=== PATIENT | female | born 1985 | race Caucasian/White ===

== ENCOUNTER 2025-05-04 15:17 | Outpatient (AMB) | payer OTHER, SELFPAY ==
--- NOTE | 2025-05-04 15:23 | MHC.PC.OV ---
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 Waste/Materials Exchange Specialist Required: No Accompanied by: Self / Same As Patient Allergies No Known Allergies Allergy (Verified 05/04/25 15:27) Medication List - Last Reconciled 05/04/25 by Bernardo Roy MD No Known Home Meds Tobacco use date assessed: 05/04/25 Dental Screening Dental Screen Date: 05/04/25 Did you have a dental visit in the last 12 months?: No Did you have a dental problem in the last 6 months where you did not have access to dental care?: No Was dental information given to patient?: Patient has dentist HPI HPI Comments History of Present Illness Details History of Present Illness The patient is a 40-year-old female presenting for evaluation of suspected sleep apnea and concerns regarding weight gain and potential thyroid issues. Suspected Obstructive Sleep Apnea: The patient is concerned about sleep apnea after others have observed her stopping breathing and wheezing for air while asleep. She reports waking up feeling tired and not refreshed, experiencing morning headaches, and feeling that she does not get deep, restorative (REM) sleep. She notes waking every couple of hours and has restless sleep. A specialized pillow for snoring has provided only one night of decent sleep. Morbid Obesity: The patient's mother suspects she has thyroid issues due to being overweight and unable to lose weight. The patient states she is at the highest weight she has ever been in her life, having weighed around 140-150 pounds before her 6-7 years ago. 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 Her BMI is 47.5, which is classified as morbid obesity. Alcohol Use Disorder: The patient reports drinking wine every day. She acknowledges a history of alcohol abuse and has had three periods of sobriety in the past, lasting nine months twice and ten months once. She describes herself as a functional user who works daily, but uses alcohol to self-medicate and numb her feelings of anxiety and depression. She previously attended an outpatient program but left after three weeks as she felt it was not a good fit. Abnormal Mammogram: The patient had her first mammogram on Thursday and was called back for additional images and an ultrasound of her right breast due to findings of dense breast tissue. Health Maintenance: The patient has not had a Pap smear since her six to seven years ago. She has no personal history of hypertension or diabetes. Surgical History: - Emergency section approximately six years ago Medications: - The patient denies taking any prescription medications. Social History: - Family Status: The patient is a mother to a 6-year-old daughter. 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 - Substance Use: The patient uses a Juul vape pen and reports drinking wine daily. - Housing: She lives in a [place] [facility] area ([facility] ) which is a 45-minute drive from the clinic. - Legal History: Reports a past DUI which resulted in being unable to drive for approximately four years. Family History: - Paternal grandmother: of two consecutive heart attacks. - Paternal grandfather: of colon cancer at age 41. - Mother: History of breast cancer. - Paternal aunt: History of breast cancer. Diagnostic Results: - Mammogram: Recent mammogram showed dense breast tissue, requiring follow-up imaging and an ultrasound of the right breast. Past Medical History - 1, Para 1, with one six years ago resulting in an emergency . - History of alcohol abuse, with three prior periods of sobriety. - Attended an outpatient alcohol treatment program in the past but did not complete it. - History of depression. - Denies history of hypertension or diabetes. Health Maintenance - Patient advised on the need to follow up on her recent abnormal mammogram findings. - The patient is due for a Pap smear, with her last one having been six years ago. - Comprehensive labs will screen for common comorbidities related to obesity, such as diabetes and hyperlipidemia. - A follow-up visit is scheduled in two weeks to review all lab results. [facility] Medical History (Updated 05/04/25 @ 16:20 by Bernardo Roy MD) Morbid obesity due to excess calories Anxiety and depression Alcohol abuse Sleep apnea delivery delivered Family History (Updated 05/04/25 @ 15:31 by Narendra Espinosa MA) Father Substance abuse Paternal Grandfather Substance abuse Mother Breast cancer Paternal Aunt Breast cancer Maternal Grandfather Colon cancer Maternal Grandmother Heart attack Other FH: mental illness Social History (Updated 05/04/25 @ 15:32 by Narendra Espinosa MA) Housing: House Alcohol intake: current e-Cigarette/Vaping Use: Currently Using service: No Current occupational status: employed 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 1. Little interest or pleasure in doing things: not at all 2. Feeling down, depressed, or hopeless: not at all 3. Trouble falling or staying asleep, or sleeping too much: several days 4. Feeling tired or having little energy: several days 5. Poor appetite or overeating: not at all 6. Feeling bad about yourself - or that you are a failure or have let yourself or your family down: not at all 7. Trouble concentrating on things, such as reading the newspaper or watching television: not at all 8. Moving or speaking so slowly that other people could have noticed. Or the opposite - being so fidgety or restless that you have been moving around a lot more than usual: not at all 9. Thoughts that you would be better off or of hurting yourself in some way: not at all Total score: 2 Depression Screening Interpretation: Negative Depression Screening Done: Yes 41453 - PHQ-9 Billing: Yes Source: Developed by Drs. Andrew Henry, Evi Bryant, Herman Odell and colleagues, with an educational betty from [employer]. Thrive Questionnaire Date Thrive assessed: 05/04/25 I am a: Patient What is your living situation today?: I have a steady place to live Within the past 12 months, did the food you bought not last and you didn't have the money to get more?: Never true Within the past 12 months, did you worry whether your food would run out before you got money to buy more?: Never true Do you have trouble paying for medicines?: No Do you have trouble getting transportation to medical appointments?: No Do you have trouble paying your heating and electricity bill?: No Do you have trouble taking care of your child, family member or friend?: No Are you currently unemployed and looking for a job?: No Are you interested in more education?: No Please select the resources that you would like help with: None Currently or been in a relationship where the following occur: No concerns reported THRIVE Score: 0 AUDIT C Alcohol Use Questionnaire (AUDIT-C) 1. How often do you have a drink containing alcohol?: 4 or more times a week 2. How many drinks containing alcohol do you have on a typical day when you are drinking?: 7 to 9 3. How often do you have six or more drinks on one occasion?: Daily or almost daily Total Score: 11 EMILIANO-7 AMB Questionnaire EMILIANO-7 Date EMILIANO - 7 assessed: 05/04/25 Feeling nervous, anxious, or on edge: 0 = Not at all Not being able to stop or control worryin = Not at all Worrying too much about different things: 0 = Not at all Trouble relaxin = Not at all Being so restless that it is hard to sit still: 0 = Not at all Becoming easily annoyed or irritable: 0 = Not at all Feeling afraid as if something awful might happen: 0 = Not at all Total EMILIANO-7 score (0-4 normal; 5-9 mild; 10-14 moderate; 15-21 severe): 0 Source: Developed by Drs. Andrew Henry, Evi Bryant, Hreman Odell and colleagues, with an educational betty from [employer]. EMILIANO-7 Assessment Billing EMILIANO-7 Assessment Tool: EMILIANO-7 Assessment 86854 Review of Systems Narrative Review of Systems - General: Reports fatigue and feeling unrefreshed upon waking. - Neurological: Reports waking up with headaches. - Psychiatric: Reports symptoms consistent with depression and anxiety. - Respiratory: Reports episodes of apnea and wheezing during sleep as observed by others. - Sleep: Reports restless sleep, not achieving deep sleep, and waking every couple of hours. - : Reports regular menses. - GI: Denies constipation. - Integumentary: Denies lower extremity swelling. 10-point ROS reviewed and negative except as noted in HPI Physical exam (Primary Care) Vital Signs: Last Vital Signs Temp 97.8 F 05/04/25 15:32 Pulse 85 05/04/25 15:32 Resp 18 05/04/25 15:32 BP 136/84 05/04/25 15:32 Pulse Ox 97 05/04/25 15:32 Oxygen Delivery Method Room Air 05/04/25 15:32 BMI result Body Mass Index 47.5 Tobacco/Smoking Status: Tobacco use Status Tobacco use date assessed 05/04/25 05/04/25 15:35 Patient Tobacco Use Status 05/04/25 15:35 e-Cigarette/Vaping Use Currently Using 05/04/25 15:35 PHQ-9: PHQ-9 Score PHQ-9: Total score 2 05/04/25 15:35 Depression Screening Interpretation: Negative Thrive Assessment: Date of Thrive Assessment Date Thrive assessed 05/04/25 05/04/25 15:35 Currently or been in a relationship where the following occur: No concerns reported Narrative Physical Exam General: Well-appearing, in no acute distress. Vital signs: Blood pressure and pulse are good. BMI is 47.5. HEENT: Normocephalic, atraumatic. PERRLA, EOMI. Conjunctiva clear, sclera anicteric. Oropharynx clear, mucous membranes moist. TMs intact bilaterally. Neck: Supple, no lymphadenopathy, no thyromegaly, no JVD or carotid bruits. Cardiovascular: RRR, normal S1/S2, no murmurs, rubs, or gallops. Peripheral pulses 2+ and symmetric. No edema. Respiratory: Lungs clear to auscultation bilaterally, no wheezes, rales, or rhonchi. Normal effort. Abdomen: Soft, non-tender, non-distended. Normoactive bowel sounds. No hepatosplenomegaly, no masses. MSK: Full range of motion, no joint swelling or deformity. Normal gait. Skin: Warm, dry, intact. No rashes, lesions, or pallor. Neuro: Alert and oriented x3. Cranial nerves II-XII intact. Strength 5/5 throughout. Sensation intact. Reflexes 2+ symmetric. Normal coordination and gait. Psych: Appropriate mood and affect. Normal judgment and insight. Coding Level of Care Code New Pt Level 4 (01895) Diagnoses Morning headache R51.9 Additional Codes EMILIANO-7 Assessment Billing - EMILIANO-7 Assessment Tool: EMILIANO-7 Assessment 04400 ([id number]) PHQ-9 - 86821 - PHQ-9 Billing: Yes ([id number]) Assessment & Plan Assessment & Plan (1) Morning headache: Code(s): R51.9 - Headache, unspecified Plan Consent The patient provided verbal consent to record the encounter. Patient was informed and verbally consented to the use of an ambient scribe for clinic note documentation during this visit. Plan 1. Suspected Obstructive Sleep Apnea - A referral will be placed for a home sleep study to evaluate for obstructive sleep apnea. - If the study diagnoses moderate to severe sleep apnea, a referral to sleep medicine or pulmonology will be made for CPAP titration. 2. Morbid Obesity - A comprehensive lab panel will be ordered, including a complete blood count, comprehensive metabolic panel, hemoglobin A1c, lipid panel, magnesium, TSH, vitamin B12, folate, and vitamin D. - A referral will be placed to the medical weight loss clinic, with a discussion of using telehealth to overcome distance barriers. - A referral will be placed for a supervisor fish processing. - The potential use of Zepbound was discussed, which may be covered by insurance if she is diagnosed with moderate to severe obstructive sleep apnea. 3. Alcohol Use Disorder - A referral will be placed to an addiction clinic to address her daily alcohol use. - A referral will be placed to a community nurse navigator to assist with finding resources. - The patient is amenable to telehealth options for these services due to the distance from her home. 4. Depression / Anxiety - A referral will be placed to Behavioral Health for therapy to address her anxiety and depression, for which she reports self-medicating with alcohol. Discussion Notes I discussed with the patient her primary concerns of sleep apnea and weight management. I explained the plan to order a comprehensive lab panel to get a complete picture of her overall health, including thyroid function, blood counts, metabolic function, cholesterol, and nutritional markers. We discussed ordering a home sleep study to investigate her symptoms of non-restorative sleep, morning headaches, and witnessed apneas. I explained that a diagnosis of [id number]-[id number] sleep apnea opens up treatment options, including FDA approval for GLP-1 agonist therapy such as Zepbound for weight loss. I detailed the difference between medications like Ozempic/Wegovy and Mounjaro/Zepbound, clarifying they are the same drugs used for different indications (diabetes vs. weight loss). I acknowledged her weight struggles and reviewed her BMI of 47.5, explaining that it is a risk factor for cardiovascular disease. Given the complexity of her situation, including her history of alcohol use, depression, and anxiety, I proposed a comprehensive, multi-specialty approach. This plan includes referrals to a medical weight loss clinic, an addiction clinic, behavioral health for therapy, a supervisor fish processing, and a community nurse navigator. We discussed leveraging telehealth to mitigate [place] The patient was receptive to the plan and expressed her motivation to become healthy for herself and her family. We will follow up in two weeks to review the results of her lab work and the status of her referrals. Patient Instructions - Please go to the lab to have your blood drawn for the ordered tests. - You can wait to provide a urine sample until after your current menstrual period is over. - Expect a call from a amBX to schedule a home sleep study. - When you do the sleep study, continue to use your regular pillow and sleep routine. - You will receive calls to set up appointments with several specialists, including the weight loss clinic, an addiction clinic, a therapist, and a supervisor fish processing. - Ask about telehealth (video or phone) appointments to make these visits more convenient since you live far away. - It is important to follow up with the breast center regarding your recent mammogram results. - Please return to the clinic in two weeks to discuss your lab results. Medical Decision Making The patient is a 40-year-old female with a complex presentation of morbid obesity (BMI 47.5), suspected obstructive sleep apnea, alcohol use disorder, and underlying depression/anxiety. Her symptoms of witnessed apnea, non-restorative sleep, and morning headaches are highly suggestive of FAREED, necessitating a home sleep study for definitive diagnosis. A diagnosis of [id number]-mbphpa FAREED would provide an indication for GLP-1 agonist therapy (Zepbound), which would be a melton tool for managing her morbid obesity. The patient's weight gain is multifactorial, linked to psychosocial stressors, depression, and daily alcohol use. Addressing her weight requires a comprehensive approach beyond simple lifestyle advice. Therefore, referrals to a medical weight loss clinic, supervisor fish processing, behavioral health for therapy, and an addiction clinic are clinically indicated to address these interconnected issues simultaneously. Initial workup includes a comprehensive lab panel to screen for metabolic comorbidities such as hypothyroidism, diabetes, and hyperlipidemia, and to assess her overall health status before initiating potential new therapies. Her care will be coordinated with multiple specialties, with telehealth proposed to overcome the barrier of her remote residence. Urgent health maintenance items, including follow-up on her abnormal mammogram and overdue Pap smear, were also addressed. Total time spent caring for the patient today was 30 minutes. This includes time spent before the visit reviewing the chart, time spent documenting, and time spent reviewing laboratory results, diagnostic imaging, medications, performing a medically necessary evaluation, counseling on diagnoses, care coordination. Orders: Orders Complete Blood Count Auto Diff Today Z13.9 - Encounter for screening, unspecified UA CC w/rflx Micro + Cult Today Z13.9 - Encounter for screening, unspecified Vitamin B12 and Folate Today Z13.9 - Encounter for screening, unspecified Vitamin D 1,25 dihydroxy Today Z13.9 - Encounter for screening, unspecified RT home sleep study Today G47.30 - Sleep apnea, unspecified, R06.83 - Snoring, R51.9 - Headache, unspecified Comprehensive Met. Panel Today Z13.9 - Encounter for screening, unspecified Hemoglobin A1c Today Z13.9 - Encounter for screening, unspecified Hepatitis B Surface Antibody Today Z13.9 - Encounter for screening, unspecified Hepatitis B Surface Antigen Today Z13.9 - Encounter for screening, unspecified Hepatitis C Antibody Today Z13.9 - Encounter for screening, unspecified HIV Ab/Ag Today Z13.9 - Encounter for screening, unspecified Lipid Panel Today Z13.9 - Encounter for screening, unspecified Magnesium Today Z13.9 - Encounter for screening, unspecified TSH reflex Free T4 Today Z13.9 - Encounter for screening, unspecified Referrals Nurse Navigator Referral F10.10 - Alcohol abuse, uncomplicated Behavioral Health Referral F10.10 - Alcohol abuse, uncomplicated, F32.A - Depression, unspecified, F41.9 - Anxiety disorder, unspecified Addiction Medicine Referral F10.10 - Alcohol abuse, uncomplicated Nutrition/Dietitian Referral E66.01 - Morbid (severe) obesity due to excess calories
[2025-05-04 15:32] VITALS: BP 136/84; PULSE 85; RESP 18; TEMP 36.6; O2SAT 97; BMI 47.5
== END 2025-05-04 15:58 | disposition home or self-care (01) ==
LOC: HO.HMCFMS 15:18
PROVIDERS: PCP Student in an Organized Health Care Education/Training Program; Visit Provider Student in an Organized Health Care Education/Training Program
DX: R51.9 Headache, unspecified (principal)

== ENCOUNTER 2025-05-04 15:17 | Outpatient (REF) | payer OTHER, SELFPAY ==
[2025-05-04 17:45] LABS: NRBC Abs Auto 0.000 X10*3/uL (0.0-0.012); NRBC Pct Auto 0.0 /100WBC (0.0-0.2); SCAN SMEAR FLAG 1
[2025-05-04 17:47] LABS: Hematocrit 46.4 % (37.0-47.0); Hemoglobin 14.9 g/dl (12.0-16.0); Imm Gran Abs Auto 0.08 X10*3/uL (0.00-0.03); Imm Gran Pct Auto 0.7 % (0.0-0.4); Lymphocytes Absolute Auto 2.5 X10*3/uL (1.2-4.9); MANUAL DIFF FLAG SCAN; Mean Corpuscular HGB Conc 32.1 g/dl (31.0-35.0); Mean Corpuscular Hemoglobin 30.4 pg (27.0-33.0); Mean Corpuscular Volume 94.7 fL (80.0-98.0); PLT CLUMP 1; Red Blood Count 4.90 X10*6/uL (4.20-5.50)
[2025-05-04 17:48] LABS: PLT ABN DIST 1
[2025-05-04 17:51] LABS: Appearance Urine Turbid; Glucose Urine UA Negative (Negative); PH 6.0 (5.0-9.0); Specific Gravity - Urine 1.025 (1.005-1.025); UMIC TRIGGER UACC YES
[2025-05-04 18:04] LABS: White Blood Count 11.8 X10*3/uL (4.8-10.8)
[2025-05-04 18:15] LABS: Alanine Aminotransferase 45 U/L (0-31); Albumin Level 4.7 g/dL (3.5-5.0); Alkaline Phosphatase 87 U/L (39-117); Anion Gap 16 (12-20); Aspartate Amino Transferase 41 U/L (5-31); Blood Urea Nitrogen 15 mg/dL (9-16); Calcium 9.8 mg/dL (8.4-10.2); Carbon Dioxide 24 mmol/L (22-29); Chloride 102 mmol/L (96-108); Cholesterol 232 mg/dL (<200); Estimated Glomerular Filt Rate > 60; HDL Cholesterol 57 mg/dL (>40); Magnesium 2.3 mg/dL (1.6-2.6); Potassium 4.5 mmol/L (3.3-5.1); Sodium 137 mmol/L (135-145); Total Protein 7.6 g/dL (6.5-8.0); Triglycerides 175 mg/dL (<150)
[2025-05-04 18:41] LABS: Folate 5.7 ng/mL (> or = 4.0); Vitamin B12 408 pg/mL (200-900)
[2025-05-05 07:57] LABS: HBS Num1 > 1000.00 mIU/mL (0-7.99); HBsAGNum1 0.37 S/CO (0.00-0.99); HIV Num 1 0.06 S/CO (0.00-0.99); Hepatitis B Surface Antigen Negative (Negative); ~HepC Num1 0.06 S/CO (0.00-0.79); ~Hepatitis B Surface Antibody REACTIVE (Nonreactive); ~Hepatitis C Antibody Nonreactive (Nonreactive)
[2025-05-07 19:14] LABS: VITAMIN D (1,25 OH) D3 73 pg/mL; Vit D (1,25-Dihydroxy) Total 73 pg/mL (18-72); Vitamin D (1,25 OH) D2 <8 pg/mL
== END 2025-05-04 15:18 | disposition home or self-care (01) ==
LOC: HO.HKASLDS 15:17
PROVIDERS: PCP Student in an Organized Health Care Education/Training Program; Visit Provider Student in an Organized Health Care Education/Training Program
DX: E66.01 Morbid (severe) obesity due to excess calories (principal); G47.30 Sleep apnea, unspecified; R06.83 Snoring; F10.20 Alcohol dependence, uncomplicated; F32.A Depression, unspecified; F41.9 Anxiety disorder, unspecified; R51.9 Headache, unspecified; Z68.42 Body mass index [BMI] 45.0-49.9, adult
CPT/HCPCS: 36415; 80053; 80061; 81001; 82607; 82652; 82746; 83036; 83735; 84443; 85025; 86706; 86803; 87340; 87389; 96127; 99202

== ENCOUNTER 2025-05-18 14:59 | Outpatient (AMB) | payer OTHER, SELFPAY ==
[2025-05-18 15:04] VITALS: BP 125/65; PULSE 95; TEMP 36.6; O2SAT 96; BMI 46.9
--- NOTE | 2025-05-18 15:04 | MHC.PC.OV ---
Vital Signs 05/18/25 15:04 Height 4 ft 11.75 in Weight 238 lb BMI 46.9 BP 125/65 Blood Pressure Location Lt brachial Position Sitting Pulse 95 Pulse Source Pulse Oximeter Temp 97.8 F Temp Source Oral Pulse Oximetry (%) 96 Oxygen Delivery Method Room Air Intake Visit Reasons: 2 wk - lab review Glass Blower Helper Required: No Accompanied by: Self / Same As Patient Allergies No Known Allergies Allergy (Verified 05/18/25 15:04) Tobacco use date assessed: 05/18/25 Dental Screening Dental Screen Date: 05/18/25 Did you have a dental visit in the last 12 months?: No Did you have a dental problem in the last 6 months where you did not have access to dental care?: No Was dental information given to patient?: Patient has dentist HPI HPI Comments History of Present Illness Details History of Present Illness The patient is a 40-year-old individual presenting for review of laboratory results and follow-up on referrals. Hyperlipidemia: Recent lab work showed a total cholesterol of 232 mg/dL, triglycerides of 175 mg/dL, and LDL cholesterol of 140 mg/dL. The patient's HDL was within normal limits at 57 mg/dL. Elevated liver transaminases: The patient's liver function tests were noted to be slightly elevated, with one enzyme at 41 and another at 45, both with a cutoff of 31. The patient had not previously been told about elevated liver enzymes. These elevations are considered in the context of being overweight and alcohol consumption. Suspected Obstructive Sleep Apnea: A referral was previously placed for a home sleep study to evaluate for obstructive sleep apnea. The patient is awaiting a call from the sleep study company to arrange for equipment pickup. Overweight: The patient's status as overweight is noted as a contributing factor to the elevated liver enzymes. Referrals to a insulation and flooring assembler and medical weight management program have been placed. Social History: - The patient reports alcohol use. - The patient is overweight and has received referrals for a insulation and flooring assembler and medical weight management. - The patient lives 45 minutes away and prefers to use imaging services in [place]. Diagnostic Results: - CBC: White blood cells are slightly high but not concerning; red blood cells, hemoglobin, hematocrit, and platelets are normal. - CMP: Sodium, potassium, renal function, glucose, calcium, and magnesium are within normal limits. - Hemoglobin A1c: Within normal limits. - Liver Function Tests: Slightly elevated, with one enzyme at 41 and another at 45 (reference range cutoff is 31). - Lipid Panel: Triglycerides 175 mg/dL (ref <150), total cholesterol 232 mg/dL (ref <200), LDL 140 mg/dL (ref <100), and HDL 57 mg/dL (ref >40). - Vitamins: Vitamin B12, vitamin D, and folate levels are good. - Thyroid function tests: Good. - Urinalysis: Positive for moderate blood, attributed to menses. - Infectious Disease Screen: Negative for Hepatitis B, Hepatitis C, and HIV. Past Medical History - Pending referrals for addiction medicine and behavioral health have been placed. Health Maintenance - The patient will follow up on pending referrals with addiction medicine, behavioral health, a insulation and flooring assembler, and medical weight management. - The patient will complete the previously referred mammogram. [facility] Medical History (Updated 05/19/25 @ 07:50 by Bernardo Roy MD) Hyperlipidemia Elevated liver enzymes Abnormal mammogram Morbid obesity due to excess calories Anxiety and depression Alcohol abuse Sleep apnea delivery delivered Family History Father Substance abuse Paternal Grandfather Substance abuse Mother Breast cancer Paternal Aunt Breast cancer Maternal Grandfather Colon cancer Maternal Grandmother Heart attack Other FH: mental illness Social History Housing: House Alcohol intake: current Patient Tobacco Use Status: Never used Tobacco e-Cigarette/Vaping Use: Currently Using service: No Current occupational status: employed 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 1. Little interest or pleasure in doing things: not at all 2. Feeling down, depressed, or hopeless: not at all 3. Trouble falling or staying asleep, or sleeping too much: several days 4. Feeling tired or having little energy: several days 5. Poor appetite or overeating: not at all 6. Feeling bad about yourself - or that you are a failure or have let yourself or your family down: not at all 7. Trouble concentrating on things, such as reading the newspaper or watching television: not at all 8. Moving or speaking so slowly that other people could have noticed. Or the opposite - being so fidgety or restless that you have been moving around a lot more than usual: not at all 9. Thoughts that you would be better off or of hurting yourself in some way: not at all Total score: 2 Depression Screening Interpretation: Negative Depression Screening Done: Yes 15065 - PHQ-9 Billing: Yes Source: Developed by Drs. Andrew Henry, Evi Bryant, Herman Odell and colleagues, with an educational betty from [email or web address]. Thrive Questionnaire Date Thrive assessed: 05/18/25 I am a: Patient What is your living situation today?: I have a steady place to live Within the past 12 months, did the food you bought not last and you didn't have the money to get more?: Never true Within the past 12 months, did you worry whether your food would run out before you got money to buy more?: Never true Do you have trouble paying for medicines?: No Do you have trouble getting transportation to medical appointments?: No Do you have trouble paying your heating and electricity bill?: No Do you have trouble taking care of your child, family member or friend?: No Are you currently unemployed and looking for a job?: No Are you interested in more education?: No Please select the resources that you would like help with: None Currently or been in a relationship where the following occur: No concerns reported THRIVE Score: 0 AUDIT C Alcohol Use Questionnaire (AUDIT-C) 1. How often do you have a drink containing alcohol?: 4 or more times a week 2. How many drinks containing alcohol do you have on a typical day when you are drinking?: 7 to 9 3. How often do you have six or more drinks on one occasion?: Daily or almost daily Total Score: 11 EMILIANO-7 AMB Questionnaire EMILIANO-7 Date EMILIANO - 7 assessed: 05/18/25 Feeling nervous, anxious, or on edge: 0 = Not at all Not being able to stop or control worryin = Not at all Worrying too much about different things: 0 = Not at all Trouble relaxin = Not at all Being so restless that it is hard to sit still: 0 = Not at all Becoming easily annoyed or irritable: 0 = Not at all Feeling afraid as if something awful might happen: 0 = Not at all Total EMILIANO-7 score (0-4 normal; 5-9 mild; 10-14 moderate; 15-21 severe): 0 Source: Developed by Drs. Andrew Henry, Evi Bryant, Herman Odell and colleagues, with an educational betty from [email or web address]. EMILIANO-7 Assessment Billing EMILIANO-7 Assessment Tool: EMILIANO-7 Assessment 14928 Review of Systems Narrative Review of Systems - General: Reports having a cold. - Genitourinary: Reports being on the patient's period around the time of the urine sample collection. 10-point ROS reviewed and negative except as noted in HPI Physical exam (Primary Care) Vital Signs: Last Vital Signs Temp 97.8 F 05/18/25 15:04 Pulse 95 05/18/25 15:04 BP 125/65 05/18/25 15:04 Pulse Ox 96 05/18/25 15:04 Oxygen Delivery Method Room Air 05/18/25 15:04 BMI result Body Mass Index 46.9 Tobacco/Smoking Status: Tobacco use Status Tobacco use date assessed 05/18/25 05/18/25 15:05 Patient Tobacco Use Status Never used Tobacco 05/18/25 15:05 e-Cigarette/Vaping Use Currently Using 05/18/25 15:05 PHQ-9: PHQ-9 Score PHQ-9: Total score 2 05/18/25 15:12 Depression Screening Interpretation: Negative Thrive Assessment: Date of Thrive Assessment Date Thrive assessed 05/18/25 05/18/25 15:05 Currently or been in a relationship where the following occur: No concerns reported Narrative Physical Exam General: Well-appearing, in no acute distress. Vital signs: Within normal limits. HEENT: Normocephalic, atraumatic. PERRLA, EOMI. Conjunctiva clear, sclera anicteric. Oropharynx clear, mucous membranes moist. TMs intact bilaterally. Neck: Supple, no lymphadenopathy, no thyromegaly, no JVD or carotid bruits. Cardiovascular: RRR, normal S1/S2, no murmurs, rubs, or gallops. Peripheral pulses 2+ and symmetric. No edema. Respiratory: Lungs clear to auscultation bilaterally, no wheezes, rales, or rhonchi. Normal effort. Abdomen: Soft, non-tender, non-distended. Normoactive bowel sounds. No hepatosplenomegaly, no masses. MSK: Full range of motion, no joint swelling or deformity. Normal gait. Skin: Warm, dry, intact. No rashes, lesions, or pallor. Neuro: Alert and oriented x3. Cranial nerves II-XII intact. Strength 5/5 throughout. Sensation intact. Reflexes 2+ symmetric. Normal coordination and gait. Psych: Appropriate mood and affect. Normal judgment and insight. Office Procedures Flu Questionnaire Does the patient have a severe egg allergy?: No Does the patient have severe life threatening allergies?: No Does the patient have a fever or illness today?: No Has the patient ever had Guillain-Wilkinson Syndrome?: No Has the patient ever had any past reaction to a flu shot?: No Immunizations Fluarix [id number] (PF) 45 mcg (15 mcg x 3)/0.5 mL IM syringe Performing Provider: Bernardo Roy MD Performing Location: [facility] Documented (not given) by: Mai Vergara CMA on 05/18/25 15:13 Reason Not Given: Patient Refused Coding Level of Care Code Est Pt Level 3 (78775) Diagnoses Hyperlipidemia E78.5 Elevated liver enzymes R74.8 Alcohol abuse F10.10 Anxiety and depression F41.9; F32.A Sleep apnea G47.30 Morbid obesity due to excess calories E66.01 Additional Codes EMILIANO-7 Assessment Billing - EMILIANO-7 Assessment Tool: EMILIANO-7 Assessment 96973 ([id number]) PHQ-9 - 90521 - PHQ-9 Billing: Yes ([id number]) Assessment & Plan Assessment & Plan (1) Hyperlipidemia: Code(s): E78.5 - Hyperlipidemia, unspecified Category: Medical (2) Elevated liver enzymes: Code(s): R74.8 - Abnormal levels of other serum enzymes Category: Medical (3) Alcohol abuse: Code(s): F10.10 - Alcohol abuse, uncomplicated Category: Social Hx (4) Anxiety and depression: Code(s): F41.9 - Anxiety disorder, unspecified; F32.A - Depression, unspecified Category: Medical (5) Sleep apnea: Code(s): G47.30 - Sleep apnea, unspecified Category: Medical (6) Morbid obesity due to excess calories: Code(s): E66.01 - Morbid (severe) obesity due to excess calories Category: Medical Plan Consent Patient was informed and verbally consented to the use of an ambient scribe for clinic note documentation during this visit. Plan 1. Hyperlipidemia - No lipid-lowering medication will be initiated at this time. - The plan is to manage with lifestyle modifications. - The patient is encouraged to follow up with the pending referrals for a insulation and flooring assembler and medical weight management. 2. Elevated Liver Transaminases - A baseline liver ultrasound is ordered to evaluate for underlying pathology such as fatty liver disease. - A paper referral for the ultrasound was provided to the patient to take to an imaging center in [place]. - The rationale for monitoring is to prevent progression to fibrosis and cirrhosis. 3. Suspected Obstructive Sleep Apnea - The patient will proceed with the referral for a home sleep study. - The contact number for the sleep study company will be provided to the patient to facilitate scheduling. Discussion Notes I reviewed the lab results with the patient. I explained that the elevated liver enzymes and hyperlipidemia are likely related to excess weight and alcohol intake, and while the labs are abnormal, they are amenable to lifestyle modifications without needing medication at this time. I educated the patient on the importance of obtaining a baseline liver ultrasound to screen for fatty liver disease, explaining that this condition can progress to cirrhosis if unmonitored. We discussed the pending referrals for the home sleep study, insulation and flooring assembler, weight management, and others, confirming the patient will follow up. Patient Instructions - Your lab results show high cholesterol and slightly elevated liver tests, which we will manage with diet and lifestyle changes instead of starting medication now. - Please follow up with the referrals that have already contacted you, including those for addiction medicine, behavioral health, and medical weight management. - I will give you the phone number for the sleep study company so you can arrange to warehouse picker the equipment for your at-home test. - I am giving you a paper referral for a liver ultrasound. Please take this with you to your upcoming mammogram appointment in [place] and have the ultrasound done there. Medical Decision Making The patient is a 40-year-old individual presenting for a review of recent lab results. The findings are significant for hyperlipidemia (total cholesterol 232, LDL 140, triglycerides 175) and mildly elevated liver transaminases. The patient's lipid levels do not warrant pharmacotherapy at this juncture; therefore, the recommended approach is lifestyle modification supported by referrals to nutrition and medical weight management. The elevated LFTs are likely due to non-alcoholic fatty liver disease (NAFLD) given the clinical context of being overweight and having dyslipidemia, though alcohol-related liver injury is also a consideration. A baseline liver ultrasound is prudent to assess for steatosis and establish a baseline for future monitoring. A referral for a home sleep study remains active to evaluate for obstructive sleep apnea as a comorbidity. Other metabolic and infectious disease screenings were reassuringly negative. Total Time Statement 20 min Total time spent caring for the patient today includes pre-visit chart review, documentation, review of laboratory and diagnostic imaging results, medication reconciliation, medically necessary evaluation, counseling on diagnoses, care coordination, ordering appropriate tests and medications, review of tests performed by other providers, reporting test results to the patient, and communication with other healthcare providers. Orders: Orders US abdomen limited 05/18/25 R74.8 - Abnormal levels of other serum enzymes Influenza [id number] Immunization 05/18/25 Z23 - Encounter for immunization
== END 2025-05-18 15:22 | disposition home or self-care (01) ==
LOC: HO.HMCFMS 15:00
PROVIDERS: PCP Family Medicine; Visit Provider Student in an Organized Health Care Education/Training Program
DX: Z23 Encounter for immunization (principal)

== ENCOUNTER → 2025-05-18 14:59 | Outpatient (BNVA) | payer OTHER, SELFPAY | PROVIDERS: PCP Family Medicine; Visit Provider Student in an Organized Health Care Education/Training Program | DX: E78.5 Hyperlipidemia, unspecified (principal); R74.8 Abnormal levels of other serum enzymes; F10.10 Alcohol abuse, uncomplicated; F41.9 Anxiety disorder, unspecified; F32.A Depression, unspecified; G47.30 Sleep apnea, unspecified; E66.01 Morbid (severe) obesity due to excess calories; Z68.42 Body mass index [BMI] 45.0-49.9, adult; Z28.21 Immunization not carried out because of patient refusal | CPT/HCPCS: 90471; 99212 ==